=== PATIENT | male | born 1990 | race Caucasian/White ===

== ENCOUNTER 2019-01-19 02:17 | Emergency (ER) | payer OTHER ==
[~2019-01-19] VITALS: Ht 182.9 cm; Wt 68.0 kg
[~2019-01-19 02:17] MED LIST: FLEXERIL PO; IBUPROFEN 600600 M1 PO; MEDROLDOSEPACK PO; MOBIC15 MG PO; NEURONTIN 300300 M1 PO; NEURONTIN800 MG PO; NORCO 5-325 TA1 EACH PO
[2019-01-19 02:46] LABS: ABSOLUTE NEUTROPHILS 2.5 thou/uL (1.4-8.2); BASOPHILS 1.1 % (0.0-2.0); EOSINOPHILS 8.4 % (0.0-3.0); HEMATOCRIT 43.7 % (42.0-52.0); HEMOGLOBIN 14.6 gm/dL (14.0-18.0); LYMPHOCYTES 47.3 % (24.0-44.0); MCH 30.8 pg (26.0-34.0); MCHC 33.3 g/dL (28.0-37.0); MCV 92.3 fL (80.0-100.0); MONOCYTES 7.6 % (1.0-8.0); PLATELET COUNT 236 thou/uL (150-400); POLYS 35.6 % (36.0-66.0); RBC 4.74 mil/uL (4.50-6.00); RDW 12.3 % (10.5-14.5)
[2019-01-19 02:53] LABS: CALCIUM 9.2 mg/dL (8.5-10.1); CREATININE 0.8 mg/dL (0.7-1.3); POTASSIUM 3.6 mmol/L (3.5-5.1)
[2019-01-19 02:57] LABS: ALBUMIN 4.5 g/dL (3.4-5.0); MAGNESIUM 1.9 mg/dL (1.8-2.4); TOTAL BILIRUBIN 0.5 mg/dL (<0.1-1.0); TOTAL PROTEIN 7.8 g/dL (6.4-8.2)
[2019-01-19] MEDS ORDERED: EXCEDRIN CAPLE1 EACH PO ×2 (02:58→03:17)
[2019-01-19] MEDS ORDERED: BENADRYL25 MG PO (03:17)
[2019-01-19] MEDS ORDERED: REGLAN 10 MG TA10 MG PO (03:17)
[2019-01-19 03:27] VITALS: BP 133/99
== END 2019-01-19 03:28 | disposition home or self-care (01) ==
LOC: ER 02:17
PROVIDERS: Emergency Medicine
DX: G43.909 Migraine, unspecified, not intractable, without status migrainosus (principal)

== ENCOUNTER 2019-07-13 17:36 | Emergency (ER) | payer BC, OTHER ==
[~2019-07-13] VITALS: Ht 182.9 cm; Wt 63.5 kg
[~2019-07-13 17:36] MED LIST changes: +BENADRYL25 MG PO; +EXCEDRIN CAPLE1 EACH PO; +REGLAN 10 MG TA10 MG PO
[2019-07-13 17:58] LABS: ABSOLUTE NEUTROPHILS 4.2 thou/uL (1.4-8.2); BASOPHILS 0.9 % (0.0-2.0); EOSINOPHILS 0.9 % (0.0-3.0); HEMOGLOBIN 13.9 gm/dL (14.0-18.0); LYMPHOCYTES 30.7 % (24.0-44.0); MCHC 34.7 g/dL (28.0-37.0); MCV 92.3 fL (80.0-100.0); MONOCYTES 6.7 % (1.0-8.0); PLATELET COUNT 258 thou/uL (150-400); POLYS 60.8 % (36.0-66.0); RBC 4.33 mil/uL (4.50-6.00); RDW 12.4 % (10.5-14.5); WBC 6.9 thou/uL (4.0-11.0)
[2019-07-13 18:05] LABS: CALCIUM 9.6 mg/dL (8.5-10.1); CREATININE 0.8 mg/dL (0.7-1.3); POTASSIUM 3.6 mmol/L (3.5-5.1)
[2019-07-13] MEDS ORDERED: NEURONTIN 300300 M1 PO (18:06)
[2019-07-13 18:13] LABS: ALBUMIN 4.6 g/dL (3.4-5.0); TOTAL BILIRUBIN 0.5 mg/dL (<0.1-1.0)
[2019-07-13 18:28] LABS: URINE BILIRUBIN NEGATIVE (Negative); URINE BLOOD NEGATIVE (Negative); URINE CLARITY CLEAR; URINE COLOR YELLOW; URINE GLUCOSE-RANDOM* NEGATIVE (Negative); URINE KETONES NEGATIVE (Negative); URINE LEUKOCYTES NEGATIVE (Negative); URINE NITRITE NEGATIVE (Negative); URINE PROTEIN (DIPSTICK) NEGATIVE (Negative); URINE SPECIFIC GRAVITY <= 1.005 (1.005-1.035); URINE UROBILINOGEN 0.2 E.U./dl (0.2-1.0)
[2019-07-13] MEDS ORDERED: IBUPROFEN 600600 M1 PO (19:51)
[2019-07-13] MEDS ORDERED: ZOFRAN ODT4 MG PO (19:51)
[2019-07-13 20:05] VITALS: BP 113/72
== END 2019-07-13 20:07 | disposition home or self-care (01) ==
LOC: ER 17:36
PROVIDERS: Emergency Medicine
DX: F19.939 Other psychoactive substance use, unspecified with withdrawal, unspecified (principal); R10.84 Generalized abdominal pain

== ENCOUNTER 2019-09-20 19:18 | Emergency (ER) | payer BC, OTHER ==
[~2019-09-20] VITALS: Ht 182.9 cm; Wt 72.6 kg
[~2019-09-20 19:18] MED LIST changes: +ZOFRAN ODT4 MG PO
[2019-09-20] MEDS ORDERED: NAPROSYN500 MG PO (20:09)
[2019-09-20 20:48] VITALS: BP 132/75
== END 2019-09-20 20:30 | disposition home or self-care (01) ==
LOC: ER 19:18
DX: S90.32XA Contusion of left foot, initial encounter (principal); S91.202A Unspecified open wound of left great toe with damage to nail, initial encounter; W23.0XXA Caught, crushed, jammed, or pinched between moving objects, initial encounter; Y93.89 Activity, other specified; Y92.89 Other specified places as the place of occurrence of the external cause; Y99.8 Other external cause status